=== PATIENT | female | born 1955 | race Caucasian/White ===

== ENCOUNTER 2017-03-28 09:14 | Outpatient (CLI) | payer BC ==
--- NOTE | 2017-03-28 11:42 | CT ---
CT OF ABDOMEN AND PELVIS: Date: 03-28-17 Comparison: None. History: Dysuria. Frequent UTIs. Technique: Serial axial CT imaging at 5 mm intervals from lung bases to the pubic symphysis without c ontrast. Coronal reformatted imaging obtained. FINDINGS: The lack of contrast media limits assessment of the bowel, viscera, vascular structures and for lymph adenopathy. Imaged lung bases are unremarkable. Partially imaged portions of the right 8th and 7th ribs appear hypoplastic and partially fused. Quest ion prior trauma or surgery. No evidence for free intraperitoneal air. The liver, spleen, gallbladder, pancreas and adrenal glands are grossly unremarkable. No nephrolithiasis or hydronephrosis is noted on either side. Bilateral kidneys appear grossly unrema rkable. No evidence for obstructive uropathy is seen on either side. No gas is seen within the region of the urinary bladder. Urinary bladder is not well assessed seconda ry to the compressed state. No evidence for bowel inflammatory change or obstruction. The osseous structures demonstrate degenera tive change of the sacroiliac joints and lower lumbar spine facet joints. There is no worrisome lytic or blastic bone lesions. IMPRESSION: No evidence for nephrolithiasis or obstructive uropathy. POS: GAURANG
== END 2017-03-28 09:15 | disposition home or self-care (01) ==
LOC: CT 09:14
PROVIDERS: ATTEND Urology
DX: M54.42 Lumbago with sciatica, left side (principal); R30.0 Dysuria
CPT/HCPCS: 74176

== ENCOUNTER 2018-11-14 10:35 | Outpatient (CLI) | payer BC ==
--- NOTE | 2018-11-14 10:51 | RAD ---
EXAM: Left foot: 2 views INDICATIONS: Injury. COMPARISON: None. FINDINGS: Tarsals appear intact. The metatarsals and phalanges appear intact. Mild DJD at the first M TP joint. IMPRESSION: No evidence of fracture
== END 2018-11-14 10:36 | disposition home or self-care (01) ==
LOC: BICRAD 10:35
PROVIDERS: ATTEND Physician Assistant
DX: S99.922A Unspecified injury of left foot, initial encounter (principal)

== ENCOUNTER 2019-09-14 09:20 | Outpatient (CLI) | payer BC ==
--- NOTE | 2019-09-14 09:40 | BD ---
EXAM: Bone densitometry using DEXA HISTORY: 63 yo female. Screening for postmenopausal osteoporosis FINDINGS: L1--bone mineral density 0.822 g/sq cm; T score -1.5 ; Z score 0.0 L2--bone mineral density 0.831 g/sq cm; T score -1.8 ; Z score -0.1 L3--bone mineral density 0.728 g/sq cm; T score -2.2 ; Z score -1.4 L4--bone mineral density 0.745 g/sq cm; T score -2.9 ; Z score -1.0 Total L1-L4--bone mineral density 0.779 g/sq cm; T score -2.4 ; Z score -0.7 Left femoral neck--bone mineral density0.531; T score -2.9 ; Z score -1.4 Total proximal left femur--bone mineral density 0.726; T score -1.8 ; Z score -0.6 IMPRESSION: Osteoporosis
== END 2019-09-14 09:21 | disposition home or self-care (01) ==
LOC: BICMAMMO 09:20
PROVIDERS: ATTEND Physician Assistant
DX: Z13.820 Encounter for screening for osteoporosis (principal); M81.0 Age-related osteoporosis without current pathological fracture; Z78.0 Asymptomatic menopausal state
CPT/HCPCS: 77080